=== PATIENT | female | born 1955 | race Caucasian/White ===

== ENCOUNTER → 2020-07-20 | Outpatient (CLI) | payer MEDICARE ==
[~2020-07-20] MED LIST: ALLERGY RELIEF10 M3 PO; CIPRO500 MG PO; FLAGYL500 MG PO; FLEXERIL 10 MG10 MG PO; NORCO 5-325 TA1 EACH PO; PRAVACHOL80 MG PO; SYNTHROID75 MCG PO
[2020-07-20 10:18] LABS: HEMOGLOBIN 14.7 gm/dl (12.3-15.3); RED BLOOD COUNT 4.91 M/UL (4.00-5.10)
[2020-07-20 10:44] LABS: BUN/CREATININE RATIO 27 (0-10)
== END ==
LOC: LAB 09:42
PROVIDERS: Family Medicine
DX: E55.9 Vitamin D deficiency, unspecified (principal); E03.9 Hypothyroidism, unspecified; E78.2 Mixed hyperlipidemia
CPT/HCPCS: 36415; 80053; 80061; 84439; 84443; 85027

== ENCOUNTER → 2020-12-16 | Outpatient (CLI) | payer MEDICARE ==
[2020-12-16 09:49] LABS: BUN/CREATININE RATIO 25 (0-10)
== END ==
LOC: LAB 08:55
PROVIDERS: Family Medicine
DX: E03.9 Hypothyroidism, unspecified (principal); E78.5 Hyperlipidemia, unspecified; E55.9 Vitamin D deficiency, unspecified
CPT/HCPCS: 36415; 80053; 80061; 84439; 84443

== ENCOUNTER 2021-09-17 16:36 | Emergency (ER) | payer MEDICARE ==
[2021-09-17 17:25] LABS: HEMOGLOBIN 14.7 gm/dl (12.3-15.3); RED BLOOD COUNT 4.86 M/UL (4.00-5.10); WHITE BLOOD COUNT 9.1 K/UL (4.5-11.0)
[2021-09-17 17:45] LABS: BUN/CREATININE RATIO 26 (0-10)
[2021-09-17] MEDS ORDERED: PYRIDIUM200 MG PO (19:18)
[2021-09-17] MEDS ORDERED: CEFUROXIME500 MG PO (19:18)
== END 2021-09-17 19:48 | disposition home or self-care (01) ==
LOC: ER1 16:36
PROVIDERS: Physician Assistant
DX: N39.0 Urinary tract infection, site not specified (principal); Z88.6 Allergy status to analgesic agent
CPT/HCPCS: 80053; 81001; 83690; 85025; 87086; 96374; 96375; 99284; J2270; J2405; Q9967

== ENCOUNTER → 2021-10-08 | Outpatient (CLI) | payer MEDICARE ==
[~2021-10-08] MED LIST changes: +CEFUROXIME500 MG PO; +PYRIDIUM200 MG PO
[2021-10-08 08:33] LABS: HEMOGLOBIN 14.6 gm/dl (12.3-15.3); RED BLOOD COUNT 4.81 M/UL (4.00-5.10); WHITE BLOOD COUNT 6.3 K/UL (4.5-11.0)
[2021-10-08 08:58] LABS: BUN/CREATININE RATIO 26 (0-10)
== END ==
LOC: LAB 08:12
PROVIDERS: Family Medicine
DX: E03.9 Hypothyroidism, unspecified (principal); E55.9 Vitamin D deficiency, unspecified; E78.2 Mixed hyperlipidemia; R73.9 Hyperglycemia, unspecified
CPT/HCPCS: 36415; 80053; 80061; 83036; 83735; 83970; 84439; 84443; 85027

== ENCOUNTER → 2021-10-20 | Outpatient (CLI) | payer MEDICARE | LOC: NM 08:53 | DX: E34.9 Endocrine disorder, unspecified (principal); E83.52 Hypercalcemia | CPT/HCPCS: 78070; A9500 ==

== ENCOUNTER → 2021-10-28 | Outpatient (CLI) | payer MEDICARE | LOC: KOH-I 14:11 | DX: E03.9 Hypothyroidism, unspecified (principal); E83.52 Hypercalcemia; E04.2 Nontoxic multinodular goiter | CPT/HCPCS: 76536 ==

== ENCOUNTER → 2021-11-12 | Outpatient (CLI) | payer MEDICARE | LOC: LAB 08:58 | DX: E03.9 Hypothyroidism, unspecified (principal) | CPT/HCPCS: 36415; 84439; 84443 ==

== ENCOUNTER → 2022-01-11 | Outpatient (CLI) | payer MEDICARE | LOC: MAMO 12-20 15:30 | DX: Z12.31 Encounter for screening mammogram for malignant neoplasm of breast (principal) | CPT/HCPCS: 77063; 77067 ==

== ENCOUNTER 2022-03-03 19:05 | Emergency (ER) | payer MEDICARE ==
[2022-03-03 21:50] LABS: HEMOGLOBIN 14.1 gm/dl (12.3-15.3); RED BLOOD COUNT 4.64 M/UL (4.00-5.10); WHITE BLOOD COUNT 9.4 K/UL (4.5-11.0)
[2022-03-03 22:10] LABS: BUN/CREATININE RATIO 24 (0-10)
[2022-03-03] MEDS ORDERED: CLINDAMYCIN HC300 MG PO (22:45)
== END 2022-03-03 23:50 | disposition home or self-care (01) ==
LOC: ER1 19:05
PROVIDERS: Physician Assistant
DX: L03.116 Cellulitis of left lower limb (principal); I10 Essential (primary) hypertension; E78.5 Hyperlipidemia, unspecified; Z88.6 Allergy status to analgesic agent
CPT/HCPCS: 73610; 80053; 83605; 84550; 85025; 85652; 86140; 87040; 96374; 99283